=== PATIENT | male | born 1965 | race Caucasian/White ===

== ENCOUNTER → 2017-02-26 | Day surgery (SDC) | payer OTHER ==
--- NOTE | 2017-02-23 13:06 | History & Physical Pre-Op ---
General Information and HPI History of Present Illness: Dante is a 51-year-old male with a long-standing and worsening complaint of painful arthritis to the right first metatarsophalangeal joint. Is undergone an extended course of conservative care, including shoe gear and activity modification, rest, immobilization and courses of NSAIDs. None of this is yielded him any significant relief. The patient presents today for preoperative surgical consultation. Allergies/Medications Allergies: Coded Allergies: No Known Allergies (01/18/17) Home Med list Simvastatin (Simvastatin*) 5 MG TABLET CHOLESTEROL (Reported) Past History Medical History Cardiovascular: hyperlipidemia Surgical History Pertinent Surgical History: appendectomy Review of Systems Review of Systems: Unremarkable except for that noted in history of present illness Exam & Diagnostic Data Physical Exam: Lungs clear bilaterally. Heart sounds rate and rhythm regular. Lower extremity physical exam demonstrates intact pedal pulses bilaterally. Both dorsalis pedis and posterior tibial arteries are palpable bilaterally. Patient without any sensory motor deficits. Deep tendon reflexes grossly intact. Patient noted to have cemented pain with palpation or range of motion through the right first metatarsophalangeal joint. The range of motion is noted to be diminished in both dorsiflexion and plantarflexion. He was crepitus noted with range of motion. Assessment/Plan Assessment/Plan: Hallux limitus right first metatarsophalangeal joint. A lengthy discussion reviewing both surgical and conservative options was held the patient at bedside and the patient elected to go forward with surgery despite the risks. As Ranked By This Provider Problem List: 1. Hallux rigidus of right foot Attending MD Review Statement Attending Statement Attending MD Statement: examined this patient
[~2017-02-26] VITALS: Ht 182.9 cm; Wt 95.3 kg
[~2017-02-26] MED LIST: SIMVASTATIN5 M2
--- NOTE | 2017-02-26 12:45 | Operative Report ---
Operative/Inv Procedure Report Surgery Date: 02/26/17 Name of Procedure: 1 first MPJ fusion right foot 2 intraoperative cast Application right 3 intraoperative administration of ankle block anesthesia Pre-Operative Diagnosis: 1 severe DJD right first metatarsophalangeal joint Post-Operative Diagnosis: The same Estimated Blood Loss: scant Surgeon/Intelligence Support Officer: [place] ROMERO DPM Anesthesia: moderate sedation, block Operative/Procedure Note Note: After obtaining informed consent the patient was brought to the operating room and placed on the operating table in supine position. The patient was then securely fastened to the operating table utilizing safety belt. After administration of IV sedation, 10 mL of 0.5% Marcaine plain was infiltrated about the patient's right ankle. A well-padded ankle tourniquet was placed about the patient's right lower extremity. 2 g of Ancef were delivered intravenously times one dose. The right lower extremity was elevated to exsanguinate the limb, at which point the ankle tourniquet was inflated 250 mmHg. Attention directed dorsal aspect of the right foot where a 6 cm linear incision was made just medial to the course of the extensor listless longus tendon. The skin was incised with a 15 blade and deepened subtenons tissues. All vital neurovascular structures were identified protected. A linear capsulotomy was performed exposing the metatarsophalangeal joint. Severe degenerative changes were noted about the joint and within the joint. Sagittal bone saw was utilized to second the exostoses identified dorsally laterally and medially. A curet was utilized to denude the cartilage off of the head of the first metatarsal and the base of proximal phalanx. Next, the head of the first metatarsal head and the base proximal phalanx were fenestrated with a 60 K wire. Next the joint was put into position of approximately 8-10 of valgus and 80 of dorsiflexion the metatarsophalangeal joint. There is no frontal plane rotation. The joint was then temporally fixated with a 62 K wire. Next crossing 3.5 mm fully threaded cortical screws were placed to secure the joint. The temporary fixation was removed the alignment and placement of the hardware was verified under intraoperative fluoroscopy. Nipple was then irrigated with copious Svensson normal sterile saline. The capture structures were reapproximated with 3-0 Vicryl and the subtenons tissues reapproximated 4-0 Vicryl. The incision was then reapproximated with 3-0 nylon. Incision was dressed with Xeroform 4 x 4's Kerlix and an Usman wrap. A Mitchell compressive dressing and posterior splint was then applied. The patient was noted to tolerate both procedure and anesthesia well and the patient was transported from the operating room to recovery by sent stable best assess intact all digits right foot.
== END ==
LOC: STS 01:35
DX: M20.21 Hallux rigidus, right foot (principal); M19.071 Primary osteoarthritis, right ankle and foot; E78.5 Hyperlipidemia, unspecified; F17.200 Nicotine dependence, unspecified, uncomplicated; E78.00 Pure hypercholesterolemia, unspecified
CPT/HCPCS: 88304; C1713; J0690; J2001; J2250

== ENCOUNTER → 2017-05-28 | Day surgery (SDC) | payer OTHER ==
--- NOTE | 2017-05-25 12:02 | History & Physical Pre-Op ---
General Information and HPI History of Present Illness: Dante is a 52-year-old male with a long-standing and worsening complaint of painful hallux limitus left foot. The patient has undergone an extended course of conservative care, including shoe gear and activity modification, rest, immobilization and courses of NSAIDs. Yielded him any significant relief. The patient presents today for preoperative surgical consultation. Allergies/Medications Allergies: Coded Allergies: No Known Allergies (01/18/17) Home Med list Simvastatin (Simvastatin*) 5 MG TABLET CHOLESTEROL (Reported) Past History Medical History Cardiovascular: hyperlipidemia Surgical History Pertinent Surgical History: appendectomy Review of Systems Review of Systems: Unremarkable except for that noted history of present illness Exam & Diagnostic Data Physical Exam: Lungs clear bilaterally. Heart sounds rate and rhythm regular. Lower extremity physical exam demonstrates intact pedal pulses bilaterally. Pulses dorsalis pedis and posterior tibial arteries are palpable bilaterally. Patient without any sensory motor deficits. Deep tendon reflexes grossly intact. Patient noted to have pain with palpation range of motion through the left first metatarsophalangeal joint. Dorsiflexion is noted to be limited, especially in dorsiflexion. A hard end range of motion is noted. Assessment/Plan Assessment/Plan: Hallux limitus left foot. A lengthy discussion reviewing both surgical and conservative options was held the patient at bedside and the patient elected to go forward surgery despite the risks. As Ranked By This Provider Problem List: 1. Hallux rigidus of left foot Attending MD Review Statement Attending Statement Attending MD Statement: examined this patient
[~2017-05-28] VITALS: Ht 182.9 cm; Wt 104.3 kg
--- NOTE | 2017-05-28 14:48 | Operative Report ---
Operative/Inv Procedure Report Surgery Date: 05/28/17 Name of Procedure: 1 Cheilectomy left first metatarsophalangeal joint 2 intraoperative administration of ankle block anesthesia Pre-Operative Diagnosis: 1 Hallux limitus left Post-Operative Diagnosis: Same Estimated Blood Loss: scant Surgeon/Coffee Brewer: [place] ROMERO DPM Anesthesia: moderate sedation, block Operative/Procedure Note Note: After obtaining informed consent the patient was brought to the operating room and placed on the operating table in the supine position. The patient was then securely fastened to the operating table utilizing safety belt. After administration of IV sedation, 10 mL of 0.5% Marcaine plain was infiltrated about the patient's left ankle. A well-padded ankle tourniquet was placed about the patient's left lower extremity. 2 g of Ancef were delivered intravenously times one dose. The left foot and ankle within scrubbed prepped and draped in usual aseptic manner. The left lower extremity was elevated to examine to limb, which point the ankle tourniquet was inflated 250 mmHg. Attention was directed to the dorsal left foot, where a 6 cm linear incision was made just medial to the course of the extensor hallucis longus tendon. Skin was incised with 15 blade and deepened subtenons tissues. The dissection was then carried down to the capture structures were linear capsulotomy was performed exposing the medial eminence of the dorsal exostoses. These were then removed with a sagittal bone saw. The wound was irrigated with cuff Svensson normal sterile saline. The capture structures reapproximated 3-0 Vicryl and the septae stitches reprepped with 4-0 Vicryl. The skin edges were then reapproximated 4-0 Monocryl. Incision was dressed with Steri-Strips Xeroform 4 x 4's Kerlix and an Usman wrap. The patient was noted to tolerate both procedure and anesthesia well and the patient was transported from the operating room to recovery with vital signs stable best assess intact all digits left foot.
== END ==
LOC: STS 03:01
DX: M20.5X2 Other deformities of toe(s) (acquired), left foot (principal); E78.5 Hyperlipidemia, unspecified
CPT/HCPCS: 88304; J0690; J2001; J2250